=== PATIENT | male | born 1955 | race Caucasian/White ===

== ENCOUNTER 2016-09-08 07:04 | Emergency (ER) | payer BC ==
[2016-09-08] MEDS ORDERED: ALBUTEROL 3 ML DEYVIAL IH ONE (07:21)
[2016-09-08 07:23] VITALS: BP 133/83; PULSE 73; RESP 16; TEMP 98.8; O2SAT 97
--- NOTE | 2016-09-08 07:24 | UCPHY ---
H & P Patient Type: New HPI/ROS: Chief Complaint: Cough HPI: 61-year-old male presenting with 4 5 days of dry hacking cough. Patient states he flew back from [place] last weekend and developed symptoms of upper respiratory infection. He has been taking [id number] expectorants but has had a persistent dry hacking nonproductive cough which is keeping up up at night. Denies any fevers or chills. No chest pain or shortness of breath. No nausea or vomiting. No headaches. No sore throat or ear pain. ROS: 10 point Review of Systems is negative except as noted in the HPI. PMH: None Medications: Baby aspirin daily Allergies: Penicillin Social History: No smoking, no alcohol, no recreational drug use Family History: non-contributory Physical Exam: Gen: Awake, Alert, No Distress HEENT: Nose: no rhinorrhea Eyes: PERRLA, EOMI Mouth: Moist mucosa Neck: Supple, no JVD Chest: nontender, has mild diffuse expiratory wheeze with forced expiration, no focal rales or rhonchi Heart: S1, S2 normal, no murmur Abd: Soft, non-tender, no guarding Back: no CVA tenderness, no midline tenderness Ext: no edema, non-tender Skin: no rash Neuro: CN II-XII intact, Sensation grossly intact, Strength 5/5 in bilateral upper and lower extremities - Family History Significant Family History: No pertinent family hx - Social History Smoking Status: Never smoked Constitutional: Initial Vital Signs Temperature (C) 37.1 C 09/08/16 07:15 Heart Rate 73 09/08/16 07:15 Respiratory Rate 16 09/08/16 07:15 Blood Pressure 133/83 H 09/08/16 07:15 O2 Sat (%) 97 09/08/16 07:15 O2 Delivery Mode Room Air Allergies/Adverse Reactions: Penicillins Allergy (Verified 09/08/16 07:23) Home Medications: Medication Instructions Recorded Aspirin EC [Aspirin EC 81 mg] 81 mg PO DAILY 04/29/11 Fish Oil/Dha/Epa 04/29/11 Albuterol [Proventil Inhaler HFA 1 - 2 puffs IH Q4H #1 mdi 09/08/16 (*)] Inhaler, Assist Devices [Space 1 each MC Q4 PRN #1 spacer 09/08/16 Chamber Plus] Departure - Departure Disposition: Home, Routine, Self-Care Clinical Impression: Bronchitis Condition: Good Instructions: Acute Bronchitis (ED), Bronchospasm (ED), Wheezing (ED) Additional Instructions: You may use the albuterol inhaler 2 puffs every 4 hours as needed for wheeze or cough. Always use a spacer when use the inhaler. Follow up with your primary care physician in 3-4 days if symptoms are not improving. Referrals: Memo Khoury MD [Primary Care Provider] - As per Instructions Prescriptions: Albuterol [Proventil Inhaler HFA (*)] 1 - 2 puffs IH Q4H #1 mdi Inhaler, Assist Devices [Space Chamber Plus] 1 each MC Q4 PRN #1 spacer PRN Reason: Wheezing - PQRS PQRS Measurement: NA
== END 2016-09-08 08:00 | disposition home or self-care (01) ==
LOC: CED 07:04
DX: J20.9 Acute bronchitis, unspecified (principal)
CPT/HCPCS: 99204-PO; G0463-PO

== ENCOUNTER → 2017-08-22 | Outpatient (CLI) | payer BC | LOC: CIMAGING 07:18 | PROVIDERS: ATTEND Internal Medicine | DX: K76.9 Liver disease, unspecified (principal) | CPT/HCPCS: 76700-PO ==

== ENCOUNTER → 2017-08-23 | Outpatient (CLI) | payer BC ==
[~2017-08-23] MED LIST: IOPAMIDOL (ISOVUE-300) 100 ML BTL ONE
== END ==
LOC: FIMAGING 17:54
PROVIDERS: ATTEND Internal Medicine
DX: R16.0 Hepatomegaly, not elsewhere classified (principal); K40.90 Unilateral inguinal hernia, without obstruction or gangrene, not specified as recurrent; K59.00 Constipation, unspecified; N40.0 Benign prostatic hyperplasia without lower urinary tract symptoms
CPT/HCPCS: Q9967